=== PATIENT | male | born 1960 | race Caucasian/White ===

== ENCOUNTER → 2016-10-09 | Outpatient (CLI) | payer BC ==
[2016-10-09 08:40] LABS: Blood Urea Nitrogen 12 mg/dL (9-20); Non-African American GFR(MDRD) >60 (>60 ml/min/1.73 sqM)
== END | disposition home or self-care (01) ==
LOC: LABWHC1 07:47
PROVIDERS: ATTEND Internal Medicine Cardiovascular Disease
DX: R07.2 Precordial pain (principal)
CPT/HCPCS: 36415; 82565; 84520

== ENCOUNTER → 2016-11-18 | Outpatient (CLI) | payer BC ==
[2016-11-18 07:41] LABS: Basophils % (A) 1 %; CH 32.8; CHCM 34.5; Eosinophils # (A) 0.2 k/uL (0-0.7); Eosinophils % (A) 5 %; HCT 46.7 % (39.0-53.0); HDW 2.57; HGB 15.9 gm/dL (13.0-17.5); Luc # (Auto) 0.17; Luc % (Auto) 4; Lymphocytes # (A) 1.2 k/uL (1.0-4.8); Lymphocytes % (A) 31 %; MCH 32.4 pg (25.0-35.0); MCV 95.5 fL (80.0-100.0); Mean Platelet Volume 7.1; Monocytes # (A) 0.3 k/uL (0-1.0); Monocytes % (A) 7 %; Neutrophils # (A) 2.1 k/uL (1.3-7.7); Neutrophils % (A) 52 %; RBC 4.89 m/uL (4.30-5.90); RDW 12.4 % (11.5-15.5); WBC (Perox) 4.11
[2016-11-18 08:29] LABS: ALT 34 U/L (21-72); AST 29 U/L (17-59); Alkaline Phosphatase 54 U/L (38-126); Anion Gap 8 mmol/L; Blood Urea Nitrogen 14 mg/dL (9-20); Calcium 9.5 mg/dL (8.4-10.2); Carbon Dioxide 32 mmol/L (22-30); Chloride 103 mmol/L (98-107); Cholesterol 168 mg/dL (<200); Glucose 86 mg/dL (74-99); HDL Cholesterol 53 mg/dL (40-60); Non-African American GFR(MDRD) >60 (>60 ml/min/1.73 sqM); Potassium 4.5 mmol/L (3.5-5.1); Sodium 143 mmol/L (137-145); Total Bilirubin 1.1 mg/dL (0.2-1.3); Total Protein 7.1 g/dL (6.3-8.2); Triglycerides 95 mg/dL (<150)
[2016-11-18 09:17] LABS: Hepatitis C Virus IgG Index 0.01
[2016-11-18 09:26] LABS: Hepatitis C Virus IgG Ab Negative (Negative)
[2016-11-18 13:17] LABS: Prostate Specific Antigen 1.87 ng/mL (0.00-4.00)
== END | disposition home or self-care (01) ==
LOC: LABWHC1 07:02
PROVIDERS: ATTEND Family Medicine
DX: E78.2 Mixed hyperlipidemia (principal); I10 Essential (primary) hypertension; R53.81 Other malaise; Z13.9 Encounter for screening, unspecified; Z12.5 Encounter for screening for malignant neoplasm of prostate
CPT/HCPCS: 36415; 80053; 80061; 84153; 85025; 86803

== ENCOUNTER 2017-06-06 06:40 | Observation (INO) | payer BC ==
[2017-06-06] MEDS ORDERED: ASPIRIN 81 MG PO STA (07:23)
[2017-06-06] MEDS ORDERED: NITROGLYCERIN OINT 1 INCH/GM PACKET TOPICAL STA (07:23)
--- NOTE | 2017-06-06 07:26 | ED ---
General Adult HPI - General Chief complaint: Chest Pain Stated complaint: Sharp Left Shoulder Pain/Cardiac Hx Time Seen by Provider: 06/06/17 07:05 Source: patient, RN notes reviewed Mode of arrival: wheelchair Limitations: no limitations - History of Present Illness Initial comments: Patient is a pleasant 57-year-old male presenting to the emergency department with left anterior shoulder discomfort. Onset was when he woke prior to arrival. Symptoms just lasted a minute. Discomfort was sharp. Discomfort did radiate to the axilla. Discomfort has resolved and is symptom-free at this time. No associated dyspnea, nausea, or diaphoresis. Patient did have similar symptoms a few days ago. Currently symptom-free. - Related Data Allergies Allergy/AdvReac Type Severity Reaction Status Date / Time acetaminophen Allergy Nausea & Verified 06/06/17 08:05 [From Darvocet-N] Vomiting Iodinated Contrast- Oral and Allergy Rash/Hives Verified 06/06/17 08:05 IV Dye propoxyphene Allergy Nausea & Verified 06/06/17 08:05 [From Darvocet-N] Vomiting Review of Systems ROS Statement: Those systems with pertinent positive or pertinent negative responses have been documented in the HPI. ROS Other: All systems not noted in ROS Statement are negative. Constitutional: Denies: fever Eyes: Denies: eye pain ENT: Denies: ear pain Respiratory: Denies: cough Cardiovascular: Denies: palpitations Endocrine: Denies: fatigue Gastrointestinal: Denies: abdominal pain Genitourinary: Denies: dysuria Musculoskeletal: Denies: back pain Skin: Denies: rash Neurological: Denies: weakness Past Medical History Past Medical History: No Reported History History of Any Multi-Drug Resistant Organisms: None Reported Additional Past Surgical History / Comment(s): aortic valve replacement 2009 Past Psychological History: No Psychological Hx Reported Smoking Status: Former smoker Past Alcohol Use History: Occasional General Exam Limitations: no limitations General appearance: alert, in no apparent distress Head exam: Present: atraumatic Eye exam: Present: normal appearance, PERRL ENT exam: Present: normal oropharynx Neck exam: Present: normal inspection Respiratory exam: Present: normal lung sounds bilaterally Cardiovascular Exam: Present: regular rate, normal rhythm Expanded Peripheral pulses: 2+: Radial (R), Radial (L), Dorsalis Pedis (R), Dorsalis Pedis (L) GI/Abdominal exam: Present: soft. Absent: tenderness Extremities exam: Present: normal inspection. Absent: pedal edema, calf tenderness Neurological exam: Present: alert Psychiatric exam: Present: normal affect, normal mood Skin exam: Present: normal color. Absent: rash Course Vital Signs 06/06/17 06/06/17 06/06/17 06:43 07:42 08:41 Temperature 98.1 F Pulse Rate 61 54 L 55 L Respiratory 18 18 18 Rate Blood Pressure 129/79 117/68 133/78 O2 Sat by Pulse 99 98 99 Oximetry 06/06/17 09:41 Temperature Pulse Rate 53 L Respiratory 18 Rate Blood Pressure 105/71 O2 Sat by Pulse 99 Oximetry EKG Findings - EKG Comments: EKG Findings:: normal sinus rhythm 60. OR 164. QRS 98. QT or 32. QTC 432. Normal axis. Septal Q waves. No acute ST change. Medical Decision Making - Medical Decision Making patient reexamined and resting comfortably in bed. Patient updated on results specifically CT results. Patient was specifically aware of several findings on computed tomography scan that he needs to follow-up with. Patient also updated on plan. Case was discussed with practitioner Valdez, covering for Dr. Aragon, covering Dr. aguero, who will admit for Dr. Saba. - Lab Data Result diagrams: 06/06/17 07:03 06/06/17 07:03 Lab Results 06/06/17 06/06/17 06/06/17 Range/Units 07:03 07:03 07:03 WBC 3.7 L (3.8-10.6) k/uL RBC 4.76 (4.30-5.90) m/uL Hgb 15.1 (13.0-17.5) gm/dL Hct 45.6 (39.0-53.0) % MCV 95.8 (80.0-100.0) fL MCH 31.6 (25.0-35.0) pg MCHC 33.0 (31.0-37.0) g/dL RDW 11.9 (11.5-15.5) % Plt Count 134 L (150-450) k/uL Neutrophils % 51 % Lymphocytes % 31 % Monocytes % 8 % Eosinophils % 6 % Basophils % 1 % Neutrophils # 1.9 (1.3-7.7) k/uL Lymphocytes # 1.1 (1.0-4.8) k/uL Monocytes # 0.3 (0-1.0) k/uL Eosinophils # 0.2 (0-0.7) k/uL Basophils # 0.0 (0-0.2) k/uL PT (9.0-12.0) sec INR (<1.2) APTT (22.0-30.0) sec D-Dimer (<0.60) mg/L FEU Sodium 143 (137-145) mmol/L Potassium 4.6 (3.5-5.1) mmol/L Chloride 105 (98-107) mmol/L Carbon Dioxide 29 (22-30) mmol/L Anion Gap 9 mmol/L BUN 15 (9-20) mg/dL Creatinine 0.86 (0.66-1.25) mg/dL Est GFR (MDRD) Af Amer >60 (>60 ml/min/1.73 sqM) Est GFR (MDRD) Non-Af >60 (>60 ml/min/1.73 sqM) Glucose 89 (74-99) mg/dL Calcium 9.3 (8.4-10.2) mg/dL Magnesium 2.0 (1.6-2.3) mg/dL Total Bilirubin 1.2 (0.2-1.3) mg/dL AST 27 (17-59) U/L ALT 38 (21-72) U/L Alkaline Phosphatase 62 (38-126) U/L Total Creatine Kinase 143 (55-170) U/L CK-MB (CK-2) 1.7 (0.0-2.4) ng/mL CK-MB (CK-2) Rel Index 1.2 Troponin I <0.012 (0.000-0.034) ng/mL Total Protein 7.0 (6.3-8.2) g/dL Albumin 4.3 (3.5-5.0) g/dL 06/06/17 Range/Units 07:03 WBC (3.8-10.6) k/uL RBC (4.30-5.90) m/uL Hgb (13.0-17.5) gm/dL Hct (39.0-53.0) % MCV (80.0-100.0) fL MCH (25.0-35.0) pg MCHC (31.0-37.0) g/dL RDW (11.5-15.5) % Plt Count (150-450) k/uL Neutrophils % % Lymphocytes % % Monocytes % % Eosinophils % % Basophils % % Neutrophils # (1.3-7.7) k/uL Lymphocytes # (1.0-4.8) k/uL Monocytes # (0-1.0) k/uL Eosinophils # (0-0.7) k/uL Basophils # (0-0.2) k/uL PT 10.8 (9.0-12.0) sec INR 1.1 (<1.2) APTT 28.2 (22.0-30.0) sec D-Dimer 0.77 H (<0.60) mg/L FEU Sodium (137-145) mmol/L Potassium (3.5-5.1) mmol/L Chloride (98-107) mmol/L Carbon Dioxide (22-30) mmol/L Anion Gap mmol/L BUN (9-20) mg/dL Creatinine (0.66-1.25) mg/dL Est GFR (MDRD) Af Amer (>60 ml/min/1.73 sqM) Est GFR (MDRD) Non-Af (>60 ml/min/1.73 sqM) Glucose (74-99) mg/dL Calcium (8.4-10.2) mg/dL Magnesium (1.6-2.3) mg/dL Total Bilirubin (0.2-1.3) mg/dL AST (17-59) U/L ALT (21-72) U/L Alkaline Phosphatase (38-126) U/L Total Creatine Kinase (55-170) U/L CK-MB (CK-2) (0.0-2.4) ng/mL CK-MB (CK-2) Rel Index Troponin I (0.000-0.034) ng/mL Total Protein (6.3-8.2) g/dL Albumin (3.5-5.0) g/dL - Radiology Data Radiology results: report reviewed (CT angios of the chest shows no pulmonary embolism. Mild aneurysmal dilation of descending thoracic aorta. Liver lesions. Pulmonary nodule.), image reviewed (chest x-ray shows mild cardiomegaly, postoperative changes.) Disposition Clinical Impression: Chest pain Disposition: ADMITTED IP TO THIS HOSP Referrals: Wicho Saba MD [Primary Care Provider] - 1-2 days Decision Time: 10:12
[2017-06-06 07:43] LABS: Basophils % (A) 1 %; CHCM 33.5; Eosinophils # (A) 0.2 k/uL (0-0.7); Eosinophils % (A) 6 %; HCT 45.6 % (39.0-53.0); HGB 15.1 gm/dL (13.0-17.5); Luc # (Auto) 0.12; Luc % (Auto) 3; Lymphocytes # (A) 1.1 k/uL (1.0-4.8); Lymphocytes % (A) 31 %; MCH 31.6 pg (25.0-35.0); MCV 95.8 fL (80.0-100.0); Mean Platelet Volume 7.5; Monocytes # (A) 0.3 k/uL (0-1.0); Monocytes % (A) 8 %; Neutrophils # (A) 1.9 k/uL (1.3-7.7); Neutrophils % (A) 51 %; RBC 4.76 m/uL (4.30-5.90); RDW 11.9 % (11.5-15.5); WBC 3.7 k/uL (3.8-10.6); WBC (Perox) 3.75
[2017-06-06 07:52] LABS: ALT 38 U/L (21-72); AST 27 U/L (17-59); Alkaline Phosphatase 62 U/L (38-126); Anion Gap 9 mmol/L; Blood Urea Nitrogen 15 mg/dL (9-20); Calcium 9.3 mg/dL (8.4-10.2); Carbon Dioxide 29 mmol/L (22-30); Chloride 105 mmol/L (98-107); Glucose 89 mg/dL (74-99); Non-African American GFR(MDRD) >60 (>60 ml/min/1.73 sqM); Potassium 4.6 mmol/L (3.5-5.1); Sodium 143 mmol/L (137-145); Total Bilirubin 1.2 mg/dL (0.2-1.3)
[2017-06-06 07:55] LABS: INR 1.1 (<1.2); Partial Thromboplastin Time 28.2 sec (22.0-30.0); Prothrombin Time 10.8 sec (9.0-12.0)
[2017-06-06] MEDS ORDERED: RX INFO: IV CONTRAST WAS GIVEN 1 EACH MISC MISCELLANE PRN (07:59)
[2017-06-06] MEDS ORDERED: methylPREDNISolone SOD SUCCI 125 MG/2 ML VIAL IV STA (08:05)
[2017-06-06] MEDS ORDERED: FAMOTIDINE 20 MG/2 ML VIAL IV STA (08:05)
[2017-06-06] MEDS ORDERED: diphenhydrAMINE 50 MG/ML 1 ML VIAL IVP STA (08:05)
[2017-06-06 08:07] LABS: Creatine Kinase 143 U/L (55-170)
--- NOTE | 2017-06-06 08:18 | XR ---
EXAMINATION TYPE: XR chest 2V DATE OF EXAM: 06/06/2017 HISTORY: Chest Pain. REFERENCE: Previous study dated 06/22/2012. FINDINGS: There has been a midline sternotomy. The heart is mildly enlarged. The lungs are clear. Pleural spaces are clear. IMPRESSION: MILD CARDIOMEGALY.
[2017-06-06 08:20] LABS: Creatine Kinase MB 1.7 ng/mL (0.0-2.4); Troponin I <0.012 ng/mL (0.000-0.034)
--- NOTE | 2017-06-06 09:48 | CT ---
EXAMINATION TYPE: CT angio chest DATE OF EXAM: 06/06/2017 9:15 AM COMPARISON: NONE HISTORY: Chest pain, left shoulder pain (sharp) CT DLP: 277.40 mGycm Automated exposure control for dose reduction was used. CONTRAST: CTA scan of the thorax is performed with IV Contrast, patient injected with 100 ml mL of Omnipaque 35 0, pulmonary embolism protocol. . FINDINGS: There is a 5.5 mm pulmonary nodule in the apex of the right lung. The previous study did no t extend this far superiorly. There is apical scarring present bilaterally. There is some dependent a telectasis at the lung bases bilaterally. There is some shotty mediastinal adenopathy. No pathologically enlarged lymph nodes are seen. There is no evidence of pulmonary embolus. There is mild aneurysmal dilatation of the ascending thoracic aorta. The root of the aorta measures 3 .8 cm. The proximal arch measures 3.2 cm. The remainder the aorta is normal in caliber. The heart is enlarged. There is no pleural or pericardial fluid. There is a small hiatal hernia. There is an ill-defined 15 x 11 mm area of decreased attenuation in the medial segment of the left lo be of the liver. There is a second, 9.3 mm lesion in the medial segment of the left lobe of the liver as well. A third, 2 cm lesion is noted in the posterior segment of the right lobe of the liver. Visu alized portions of the upper abdomen are otherwise normal. There is hypertrophic spondylosis within the spine. IMPRESSION: 1. THIS EXAMINATION IS NEGATIVE FOR PULMONARY EMBOLUS. 2. MILD ANEURYSMAL DILATATION OF THE ASCENDING THORACIC AORTA. 3. 3 LESIONS WITHIN THE LIVER THAT REQUIRE FURTHER ASSESSMENT. NONEMERGENT ULTRASOUND OF THE LIVER WO ULD BE SUGGESTED. 4. CARDIOMEGALY. 5. SOLITARY RIGHT-SIDED PULMONARY NODULE IN THE APEX OF THE RIGHT LUNG. 6. SMALL HIATAL HERNIA. 7. DEGENERATIVE CHANGES WITHIN THE SPINE.
[2017-06-06] MEDS ORDERED: NITROGLYCERIN SL TABS 0.4 MG TAB SUBLINGUAL PRN (10:12)
[2017-06-06 11:08] VITALS: TEMP 98.2
[2017-06-06 11:29] VITALS: BP 101/61; PULSE 59; RESP 16
[2017-06-06 11:47] VITALS: BMI 24.1
[2017-06-06] MEDS ORDERED: NITROGLYCERIN OINT 1 INCH/GM PACKET TOPICAL SCH (12:00)
[2017-06-06 14:22] LABS: Creatine Kinase 123 U/L (55-170)
[2017-06-06 14:36] LABS: Creatine Kinase MB 1.3 ng/mL (0.0-2.4); Troponin I <0.012 ng/mL (0.000-0.034)
--- NOTE | 2017-06-06 14:38 | P.HPIM ---
History of Present Illness 57-year-old male came in with complaints of sharp pain in the right lower chest area in the axilla lasted for 1 minute nonpleuritic in nature not associated with food denied any diaphoresis or shortness of breath associated with that no other active bleeding or relieving factors patient a couple episodes patient even had one episode but before I evaluated the patient. Patient the chest pain is nonpleuritic musculoskeletal related patient had a CT angios the chest which did not reveal any pulmonary embolism but there is a nodule in the right apex and also 3 lesions in the liver apparently patient had him lesion in the liver in the past as well. Because of these lesions patient will be referred to pulmonology for follow-up CAT scans patient will also be referred to oncology for liver lesions which probably need to be followed as an outpatient with repeat ultrasound. We will rule out acute coronary syndromes if her next set of troponin is negative for cardiology evaluation patient probably can be discharged home. Patient chest pain appears to be noncardiac Review of Systems REVIEW OF SYSTEMS: CONSTITUTIONAL: No fever, no malaise, no fatigue. HEENT: No recent visual problems or hearing problems. Denied any sore throat. CARDIOVASCULAR: No orthopnea, PND, no palpitations, no syncope. PULMONARY: No shortness of breath, no cough, no hemoptysis. GASTROINTESTINAL: No diarrhea, no nausea, no vomiting, no abdominal pain. Normoactive bowel sounds. NEUROLOGICAL: No headaches, no weakness, no numbness. HEMATOLOGICAL: Denies any bleeding or petechiae. GENITOURINARY: Denies any burning micturition, frequency, or urgency. MUSCULOSKELETAL/RHEUMATOLOGICAL: Denies any joint pain, swelling, or any muscle pain. ENDOCRINE: Denies any polyuria or polydipsia. The rest of the 14-point review of systems is negative. Past Medical History Past Medical History: GERD/Reflux History of Any Multi-Drug Resistant Organisms: None Reported Additional Past Surgical History / Comment(s): aortic valve replacement 2009 Past Anesthesia/Blood Transfusion Reactions: No Reported Reaction Past Psychological History: No Psychological Hx Reported Smoking Status: Former smoker Past Alcohol Use History: Occasional - Past Family History Mother Family Medical History: Cancer, Respiratory Disorder Additional Family Medical History / Comment(s): pased from lung cancer Father Family Medical History: Coronary Artery Disease (CAD), Respiratory Disorder Additional Family Medical History / Comment(s): passed from pulmonary fibrosis Medications and Allergies Home Medications Medication Instructions Recorded Confirmed Type Aspirin 325 mg PO DAILY 06/06/17 06/06/17 History Doxazosin Mesylate 1 mg PO HS 06/06/17 06/06/17 History Pantoprazole Sodium [Protonix] 40 mg PO DAILY@1400 06/06/17 06/06/17 History Allergies Allergy/AdvReac Type Severity Reaction Status Date / Time Iodinated Contrast- Oral and Allergy Rash/Hives Verified 06/06/17 10:36 IV Dye propoxyphene Allergy Nausea & Verified 06/06/17 10:36 [From Darvocet-N] Vomiting Physical Exam Vitals: Vital Signs Temp Pulse Pulse Resp BP BP Pulse Ox 06/06/17 11:07 98.2 F 06/06/17 11:00 97.5 F L 59 L 16 101/61 97 06/06/17 10:34 54 L 18 106/67 99 06/06/17 09:41 53 L 18 105/71 99 06/06/17 08:41 55 L 18 133/78 99 06/06/17 07:42 54 L 18 117/68 98 06/06/17 06:43 98.1 F 61 18 129/79 99 Intake and Output 06/05/17 06/06/17 06/06/17 22:59 06:59 14:59 Other: Voiding Method Toilet Weight 80.739 kg 80.739 kg Patient Weight 06/07/17 05:59 Weight 80.739 kg PHYSICAL EXAMINATION: GENERAL: The patient is alert and oriented x3, not in any acute distress. Well developed, well nourished. HEENT: Pupils are round and equally reacting to light. EOMI. No scleral icterus. No conjunctival pallor. Normocephalic, atraumatic. No pharyngeal erythema. No thyromegaly. CARDIOVASCULAR: S1 and S2 present. No murmurs, rubs, or gallops. PULMONARY: Chest is clear to auscultation, no wheezing or crackles. ABDOMEN: Soft, nontender, nondistended, normoactive bowel sounds. No palpable organomegaly. MUSCULOSKELETAL: No joint swelling or deformity. EXTREMITIES: No cyanosis, clubbing, or pedal edema. NEUROLOGICAL: Gross neurological examination did not reveal any focal deficits. SKIN: No rashes. Results CBC & Chem 7: 06/06/17 07:03 06/06/17 07:03 Labs: Abnormal Lab Results - Last 24 Hours (Table) 06/06/17 06/06/17 Range/Units 07:03 07:03 WBC 3.7 L (3.8-10.6) k/uL Plt Count 134 L (150-450) k/uL D-Dimer 0.77 H (<0.60) mg/L FEU Thrombosis Risk Factor Assmnt - Choose All That Apply Each Factor Represents 1 point: Age 41-60 years Thrombosis Risk Factor Assessment Total Risk Factor Score: 1 Thrombosis Risk Factor Assessment Level: Low Risk Assessment and Plan Plan: #1 chest pain: We will rule out acute coronary syndromes and unstable angina repeat another 2 more troponins cardiac reevaluation. #2 pulmonary nodule: Referral to pulmonology as mentioned above #3 lesions in the liver: Follow-up AN OUTPATIENT AND FOLLOW-UP WITH ONCOLOGY AN OUTPATIENT #4 gastro-esophageal reflux disease
--- NOTE | 2017-06-06 14:39 | P.DS ---
Providers Date of admission: 06/06/17 10:13 Attending physician: Roz Aragon Consults: 06/06/17 10:12 Consult Physician Urgent Consulting Provider: Man Varghese Consult Reason/Comments: chest pain Do you want consulting provider notified?: Yes Primary care physician: Harshil Saba [facility] Course: Please refer to my HPI Plan - Discharge Summary Discharge Rx Participant: No New Discharge Prescriptions: Discontinued Lisinopril [Prinivil] 5 mg PO BID No Action Pantoprazole Sodium [Protonix] 40 mg PO DAILY@1400 Aspirin 325 mg PO DAILY Doxazosin Mesylate 1 mg PO HS Discharge Medication List Aspirin 325 mg PO DAILY 06/06/17 [History] Doxazosin Mesylate 1 mg PO HS 06/06/17 [History] Pantoprazole Sodium [Protonix] 40 mg PO DAILY@1400 06/06/17 [History] Follow up Appointment(s)/Referral(s): Pietro Newby MD [STAFF PHYSICIAN] - 1 Week Wicho Saba MD [Primary Care Provider] - 3 Days Mark Min MD [STAFF PHYSICIAN] - 1 Week Patient Instructions/Handouts: Chest Pain (GEN) Discharge Disposition: HOME SELF-CARE
[2017-06-07] MEDS ORDERED: ASPIRIN 325 MG TAB PO SCH (09:00)
== END 2017-06-06 15:08 | disposition home or self-care (01) ==
LOC: EC 06:40 → 3OBS 10:13
PROVIDERS: ADMIT Hospitalist; ATTEND Hospitalist
DX: R07.89 Other chest pain (principal); R91.1 Solitary pulmonary nodule; K76.9 Liver disease, unspecified; M25.512 Pain in left shoulder; K21.9 Gastro-esophageal reflux disease without esophagitis; Z87.891 Personal history of nicotine dependence; Z88.5 Allergy status to narcotic agent; Z91.041 Radiographic dye allergy status; Z95.2 Presence of prosthetic heart valve; Z80.1 Family history of malignant neoplasm of trachea, bronchus and lung; Z82.49 Family history of ischemic heart disease and other diseases of the circulatory system; Z79.82 Long term (current) use of aspirin; Z79.899 Other long term (current) drug therapy; M79.621 Pain in right upper arm
CPT/HCPCS: 99285; 96374; 96375 ×2; 36415; 93005; 85379; 80053; 82550; 82553; 83735; 84484; 85025; 85610; 85730; 71020; 71275; G0378; J1200; J2930; Q9967

== ENCOUNTER → 2017-11-28 | Outpatient (CLI) | payer BC ==
[2017-11-28 10:20] LABS: HCT 46.4 % (39.0-53.0); HGB 16.4 gm/dL (13.0-17.5); MCH 32.4 pg (25.0-35.0); MCHC 35.4 g/dL (31.0-37.0); MCV 91.6 fL (80.0-100.0); Mean Platelet Volume 7.5; Platelet Count 126 k/uL (150-450); RBC 5.07 m/uL (4.30-5.90); RDW 12.2 % (11.5-15.5)
[2017-11-28 10:26] LABS: Appearance,Urine Clear (Clear); Bilirubin,Urine Negative (Negative); Blood,Urine Negative (Negative); Color,Urine Yellow; Glucose,Urine (UA) Negative (Negative); Ketones,Urine Negative (Negative); Leukocyte Esterase,Urine Negative (Negative); Nitrite,Urine Negative (Negative); Protein,Urine Negative (Negative); Urobilinogen,Urine <2.0 mg/dL (<2.0)
[2017-11-28 10:58] LABS: ALT 33 U/L (21-72); AST 31 U/L (17-59); Albumin 4.5 g/dL (3.5-5.0); Alkaline Phosphatase 59 U/L (38-126); Anion Gap 12 mmol/L; Blood Urea Nitrogen 15 mg/dL (9-20); Calcium 9.7 mg/dL (8.4-10.2); Carbon Dioxide 25 mmol/L (22-30); Chloride 106 mmol/L (98-107); Cholesterol 160 mg/dL (<200); Glucose 88 mg/dL (74-99); HDL Cholesterol 60 mg/dL (40-60); LDL Cholesterol,Calculated 85 mg/dL (0-99); Potassium 4.3 mmol/L (3.5-5.1); Sodium 143 mmol/L (137-145); Total Bilirubin 1.2 mg/dL (0.2-1.3); Total Protein 7.2 g/dL (6.3-8.2); Triglycerides 75 mg/dL (<150)
[2017-11-28 11:27] LABS: Prostate Specific Antigen 2.53 ng/mL (0.00-4.00)
== END | disposition home or self-care (01) ==
LOC: LABWHC1 09:15
PROVIDERS: ATTEND Family Medicine
DX: Z00.01 Encounter for general adult medical examination with abnormal findings (principal)
CPT/HCPCS: 36415; 80053; 80061; 81003; 84153; 85027

== ENCOUNTER 2019-02-14 08:21 | Day surgery (SDC) | payer BC ==
[2019-02-10 14:50] VITALS: BMI 24.7
[~2019-02-14 08:21] MED LIST: LACTATED RINGERS 1,000 ML IV SCH; LIDOCAINE 1% 20 ML VIAL (10MG/ML) FOR IV START INTRADERMA PRN
[2019-02-14 08:39] VITALS: RESP 16; TEMP 96.9
[2019-02-14] MEDS ORDERED: MIDAZOLAM 2 MG/2 ML VIAL ONE (09:20)
[2019-02-14] MEDS ORDERED: PROPOFOL 10 MG/ML 20 ML VIAL IV ONE (09:20)
[2019-02-14] MEDS ORDERED: fentaNYL (PF) 50 MCG/ML 2 ML AMP ONE (09:20)
--- NOTE | 2019-02-14 10:15 | P.PCN ---
Date of Procedure: 02/14/19 Description of Procedure: BRIEF HISTORY: Patient is a 58-year-old pleasant male scheduled for an elective colonoscopy as a part of evaluation of symptoms of rectal bleeding, altered bowel habits, history of polyps. He reports that over the past year he has been having loose stool. He reports episodes of bright red blood per rectum. No family history of colon cancer. No family history of IBD. He also reports some periumbilical abdominal pain. Last colonoscopy was 7 years ago and patient believes it was significant for polyps. PROCEDURE PERFORMED: Colonoscopy with biopsy. PREOPERATIVE DIAGNOSIS: Hematochezia, abdominal pain, change in bowel habits, history of colon polyps, last colonoscopy 7 years ago. ESTIMATED BLOOD LOSS: Minimal. IV sedation per Anesthesia. PROCEDURE: After informed consent was obtained, the patient, was brought into the endoscopy unit. IV sedation was administered by Anesthesia under continuous monitoring. Digital rectal examination was normal. Initially the Olympus CF-190 flexible video colonoscope was then inserted in the rectum, gradually advanced into the cecum without any difficulty. The terminal ileum was intubated and appeared normal. Careful examination was performed as the scope was gradually being withdrawn. Ileocecal valve and the appendiceal orifice were visualized and appeared normal. Prep was excellent. Mucosa of the cecum, ascending colon, transverse colon, descending colon, sigmoid colon, and rectum appeared normal. Random biopsies were taken of the left colon and the right colon due to symptoms of altered bowel habits. Mild internal hemorrhoids. Mild scattered erythema in the rectum likely related to prep. Retroflexion was performed in the rectum and no lesions were seen. The patient tolerated the procedure well. IMPRESSION: Normal-appearing colon from rectum to cecum and normal appearing terminal ileum with random biopsies of the right colon and left colon to rule out microscopic colitis. Mild internal hemorrhoids. RECOMMENDATIONS: Findings of this examination were discussed with the patient and his . Okay to resume diet. Await pathology from biopsies. Would recommend repeat colonoscopy in 5 years given personal history of colon polyps.
[2019-02-14 10:34] VITALS: BP 117/76; PULSE 52
== END 2019-02-14 11:25 | disposition home or self-care (01) ==
LOC: ORWHC2ENDO 08:21
PROVIDERS: ATTEND Internal Medicine
DX: K92.1 Melena (principal); K64.8 Other hemorrhoids; R19.7 Diarrhea, unspecified; R10.33 Periumbilical pain; Z86.010 Personal history of colon polyps; K21.9 Gastro-esophageal reflux disease without esophagitis; N42.9 Disorder of prostate, unspecified; Z95.2 Presence of prosthetic heart valve; Z87.891 Personal history of nicotine dependence; Z79.82 Long term (current) use of aspirin; Z79.899 Other long term (current) drug therapy; Z91.041 Radiographic dye allergy status; Z88.5 Allergy status to narcotic agent; Z91.048 Other nonmedicinal substance allergy status; Z80.1 Family history of malignant neoplasm of trachea, bronchus and lung
CPT/HCPCS: 45380; 88305; J2250; J3010; J2704

== ENCOUNTER → 2019-06-17 | Outpatient (CLI) | payer BC ==
[2019-06-17 14:38] LABS: HCT 44.7 % (39.0-53.0); HGB 15.4 gm/dL (13.0-17.5); MCH 32.8 pg (25.0-35.0); MCHC 34.4 g/dL (31.0-37.0); MCV 95.1 fL (80.0-100.0); Mean Platelet Volume 6.6; Platelet Count 142 k/uL (150-450); RDW 11.8 % (11.5-15.5); WBC 4.3 k/uL (3.8-10.6)
[2019-06-17 14:49] LABS: African American GFR (CKD) >90 (>60 ml/min/1.73 sqM); Anion Gap 9 mmol/L; Blood Urea Nitrogen 13 mg/dL (9-20); Carbon Dioxide 29 mmol/L (22-30); Chloride 103 mmol/L (98-107); Potassium 4.2 mmol/L (3.5-5.1); Sodium 141 mmol/L (137-145)
== END | disposition home or self-care (01) ==
LOC: LABPAT 14:12
PROVIDERS: ATTEND Internal Medicine Cardiovascular Disease
DX: Z01.812 Encounter for preprocedural laboratory examination (principal); I71.4 Abdominal aortic aneurysm, without rupture
CPT/HCPCS: 36415; 80051; 82565; 84520; 85027

== ENCOUNTER 2020-02-10 14:39 | Emergency (ER) | payer OTHER, BC ==
[2020-02-10 14:48] VITALS: RESP 18; TEMP 98.4
[2020-02-10] MEDS ORDERED: LIDOCAINE 1% INJ 10MG/ML (20 ML MDV) SQ ONE (15:31)
--- NOTE | 2020-02-10 15:37 | ED ---
Wound/Laceration HPI - General Chief Complaint: Wound/Laceration Stated Complaint: left ring finger cut Time Seen by Provider: 02/10/20 15:20 Source: patient Mode of arrival: ambulatory Limitations: no limitations - History of Present Illness Initial Comments: Patient is a 59-year-old male presenting to the emergency Department with complaints of a laceration on his left ring finger that happened prior to arrival. Patient states he was at work using a razor blade to cut plastic off of a car when he slipped and he sliced the inside part of his left ring finger. Patient states he does take a full-strength aspirin daily, no other blood thinner. Patient states his tetanus is up-to-date, 3 years ago. Bleeding is controlled at this time. He has no further complaints. - Related Data Home Medications Medication Instructions Recorded Confirmed Aspirin 325 mg PO DAILY 06/06/17 02/14/19 Doxazosin Mesylate [Cardura Xl] 2 mg PO BID 02/10/19 02/14/19 Famotidine [Pepcid AC] 10 mg PO DAILY 02/10/19 02/14/19 Allergies Allergy/AdvReac Type Severity Reaction Status Date / Time Iodinated Contrast Media Allergy Rash/Hives Verified 02/10/20 14:48 [Iodinated Contrast- Oral and IV Dye] propoxyphene Allergy Nausea & Verified 02/10/20 14:48 [From Darvocet-N] Vomiting Review of Systems ROS Statement: Those systems with pertinent positive or pertinent negative responses have been documented in the HPI. ROS Other: All systems not noted in ROS Statement are negative. Past Medical History Past Medical History: GERD/Reflux, Prostate Disorder Additional Past Medical History / Comment(s): intermittent abd. pain with diarrhea History of Any Multi-Drug Resistant Organisms: None Reported Past Surgical History: Cardiac Ablation Additional Past Surgical History / Comment(s): aortic valve replacement 2008. colonoscopy Past Anesthesia/Blood Transfusion Reactions: No Reported Reaction Past Psychological History: No Psychological Hx Reported Smoking Status: Former smoker Past Alcohol Use History: None Reported Past Drug Use History: None Reported - Past Family History Mother Family Medical History: Cancer, Respiratory Disorder Additional Family Medical History / Comment(s): pased from lung cancer Father Family Medical History: Coronary Artery Disease (CAD), Respiratory Disorder Additional Family Medical History / Comment(s): passed from pulmonary fibrosis General Exam - General Exam Comments Initial Comments: GENERAL: Well-appearing, well-nourished and in no acute distress. HEAD: Atraumatic, normocephalic. EYES: Pupils equal round and reactive to light, extraocular movements intact, sclera anicteric, conjunctiva are normal. ENT: Nares patent, oropharynx clear without exudates. Moist mucous membranes. NECK: Normal range of motion, supple without lymphadenopathy or JVD. LUNGS: Breath sounds clear to auscultation bilaterally and equal. No wheezes rales or rhonchi. HEART: Regular rate and rhythm without murmurs, rubs or gallops. ABDOMEN: Soft, nontender, normoactive bowel sounds. No guarding, no rebound. No masses appreciated. : Deferred EXTREMITIES: Full range of motion of his left hand and fingers. Neurovascular intact. No clubbing or cyanosis. NEUROLOGICAL: Normal speech, normal gait. PSYCH: Normal mood, normal affect. SKIN: Warm, Dry, normal turgor, no rashes. Patient has a 1.5 cm laceration to the inside part of his left ring finger, near the IP joint. Bleeding is controlled at this time with a bandage. Limitations: no limitations Course Vital Signs 02/10/20 02/10/20 14:45 17:04 Temperature 98.4 F 98.4 F Pulse Rate 71 74 Respiratory 18 18 Rate Blood Pressure 121/77 119/78 O2 Sat by Pulse 99 99 Oximetry Procedures - Laceration Laceration #1 Consent Obtained: verbal consent Indication: laceration Site: hand Size (cm): 0 (1.5) Description: linear Depth: simple, single layer Anesthetic Used: lidocaine 1% Anesthesia Technique: local infiltration Amount (mls): 3 Pre-repair: irrigated extensively Type of Sutures: nylon Size of Sutures: 5-0 Number of Sutures: 5 Technique: simple, interrupted Patient Tolerated Procedure: well Medical Decision Making - Medical Decision Making Patient is a 59-year-old male here for a 1.5 cm laceration to the inside aspect of his left ring finger. His tetanus vaccine is up-to-date. Bleeding was controlled with a bandage. Patient's wound was cleaned, closed with 5, 5-0 sutures. Patient tolerated procedure well. He'll have sutures removed in 7-10 days. He will be cautious with gripping and using his left hand. He is stable for discharge. Return parameters were discussed with the patient he verbalizes understanding. Disposition Clinical Impression: Laceration of left ring finger Disposition: HOME SELF-CARE Condition: Stable Instructions (If sedation given, give patient instructions): Care For Your Stitches (ED) Additional Instructions: Please return to the Emergency Department if symptoms worsen or any other concerns. Stitches need to be removed in 7-10 days. No swimming, pools, hot tub until sutures are removed. Keep area covered while working. Be cautious of gripping and using that hand. Is patient prescribed a controlled substance at d/c from ED?: No Referrals: None,Stated [REFERRING] - 1-2 days
[2020-02-10 17:04] VITALS: BP 119/78; PULSE 74
== END 2020-02-10 17:04 | disposition home or self-care (01) ==
LOC: EC 14:39
DX: S61.215A Laceration without foreign body of left ring finger without damage to nail, initial encounter (principal); K21.9 Gastro-esophageal reflux disease without esophagitis; N42.9 Disorder of prostate, unspecified; Z79.899 Other long term (current) drug therapy; Z88.8 Allergy status to other drugs, medicaments and biological substances; Z87.891 Personal history of nicotine dependence; Z91.041 Radiographic dye allergy status; Z95.828 Presence of other vascular implants and grafts; W26.8XXA Contact with other sharp object(s), not elsewhere classified, initial encounter; Y93.89 Activity, other specified; Y92.69 Other specified industrial and construction area as the place of occurrence of the external cause; Y99.0 Civilian activity done for income or pay
CPT/HCPCS: 99282; 12001; J2001

== ENCOUNTER 2020-03-08 02:29 | Emergency (ER) | payer BC ==
[2020-03-08 02:38] VITALS: RESP 18
--- NOTE | 2020-03-08 02:55 | ED ---
General Adult HPI - General Chief complaint: Syncope Stated complaint: near syncope Time Seen by Provider: 03/08/20 02:43 Source: patient, family Mode of arrival: ambulatory Limitations: no limitations - History of Present Illness Initial comments: This patient is a 59-year-old man who presents to be evaluated after syncopal episode. The patient states that he had awakened this morning with a cramp in his left calf. The patient states that after that he had gotten up to use the bathroom. While he was going back to bed he felt lightheaded and states that he had been slumped into the bed. He was feeling extremely weak and also diaphoretic. Patient's stated that he also seemed to be disoriented and not answering her appropriately. She states that she had to move his legs into bed he was not able to assist. There was no focal weakness this was bilateral. They felt he should be evaluated here. Patient states that he is feeling back to his baseline now. He did not have any chest pain. No dyspnea. No palpitations. Patient has history of aortic valve replacement due to bicuspid valve Onset/Timin -: hour(s) Severity scale (1-10): 0 Consistency: now resolved Improves with: none Worsens with: none Associated Symptoms: diaphoresis, syncope Treatments Prior to Arrival: none - Related Data Home Medications Medication Instructions Recorded Confirmed Aspirin 325 mg PO DAILY 06/06/17 02/14/19 Doxazosin Mesylate [Cardura Xl] 2 mg PO BID 02/10/19 02/14/19 Famotidine [Pepcid AC] 10 mg PO DAILY 02/10/19 02/14/19 Allergies Allergy/AdvReac Type Severity Reaction Status Date / Time Iodinated Contrast Media Allergy Rash/Hives Verified 03/08/20 02:38 [Iodinated Contrast- Oral and IV Dye] propoxyphene Allergy Nausea & Verified 03/08/20 02:38 [From Darvocet-N] Vomiting Review of Systems ROS Statement: Those systems with pertinent positive or pertinent negative responses have been documented in the HPI. ROS Other: All systems not noted in ROS Statement are negative. Constitutional: Denies: fever, chills, weakness Eyes: Denies: vision change Respiratory: Denies: cough, dyspnea Cardiovascular: Reports: as per HPI, syncope. Denies: chest pain, palpitations, orthopnea, edema Gastrointestinal: Denies: abdominal pain, nausea, vomiting Genitourinary: Denies: dysuria, hematuria Musculoskeletal: Denies: back pain Skin: Denies: rash Neurological: Reports: as per HPI, confusion. Denies: headache, weakness, numbness, paresthesias, abnormal gait Hematological/Lymphatic: Denies: easy bleeding Past Medical History Past Medical History: GERD/Reflux, Prostate Disorder Additional Past Medical History / Comment(s): intermittent abd. pain with diarrhea History of Any Multi-Drug Resistant Organisms: None Reported Past Surgical History: Cardiac Ablation Additional Past Surgical History / Comment(s): aortic valve replacement 2008. colonoscopy Past Anesthesia/Blood Transfusion Reactions: No Reported Reaction Past Psychological History: No Psychological Hx Reported Smoking Status: Former smoker Past Alcohol Use History: Occasional Past Drug Use History: None Reported - Past Family History Mother Family Medical History: Cancer, Respiratory Disorder Additional Family Medical History / Comment(s): pased from lung cancer Father Family Medical History: Coronary Artery Disease (CAD), Respiratory Disorder Additional Family Medical History / Comment(s): passed from pulmonary fibrosis General Exam Limitations: no limitations General appearance: alert, in no apparent distress Head exam: Present: atraumatic, normocephalic Eye exam: Present: normal appearance, PERRL, EOMI. Absent: scleral icterus, conjunctival injection Neck exam: Present: normal inspection Respiratory exam: Present: normal lung sounds bilaterally. Absent: respiratory distress, wheezes, rales, rhonchi, stridor Cardiovascular Exam: Present: normal rhythm, bradycardia (Rate 56 bpm), normal heart sounds. Absent: systolic murmur, diastolic murmur, rubs, gallop GI/Abdominal exam: Present: soft. Absent: distended, tenderness, guarding, rebound, mass, pulsatile mass Extremities exam: Present: normal inspection, normal capillary refill. Absent: pedal edema, calf tenderness Back exam: Present: normal inspection. Absent: CVA tenderness (R), CVA tenderness (L) Neurological exam: Present: alert, oriented X3 Skin exam: Present: warm, dry, intact, normal color. Absent: rash Course Vital Signs 03/08/20 03/08/20 02:30 04:00 Temperature 97.6 F Pulse Rate 55 L 52 L Respiratory 18 18 Rate Blood Pressure 129/76 113/77 O2 Sat by Pulse 98 98 Oximetry EKG Findings - EKG Results: EKG: interpreted by JOSH, sinus rhythm, normal axis, normal ST/T EKG shows: bradycardia (Rate 54 bpm) - Blocks, Peck, Hypertrophy, ST Abn: AV and intraventricular conduction: right bundle branch block (fixed/intermittent, complete/incomplete) (Incomplete) Medical Decision Making - Medical Decision Making 's patient is a 59-year-old man who presents following syncopal episode this morning. The workup does reveal mildly elevated BUN to creatinine ratio and the patient states that he may not have been fully keeping up with his usual fluid intake over the course yesterday. Discussed with the patient and the finding of a mildly elevated d-dimer and concern of possible DVT/PE. Further questioning regarding the patient's leg cramping reveals that it was something that he typically gets and had been self- limited he has no leg symptoms now no tenderness or swelling in the calf. The leg cramping was anterior to the groves. He never did have any chest symptoms. He does not have any chest pain dyspnea, cough, hemoptysis. The patient did decline to have CT to rule out a pulmonary embolus. In addition, patient is declining admission for telemetry monitoring and serial cardiac enzymes. He states he feels very well and would like to go home. He will follow with his physician. He agrees to return should there be any recurrence of symptoms or any new symptoms - Lab Data Result diagrams: 03/08/20 03:16 03/08/20 03:16 Lab Results 03/08/20 03/08/20 03/08/20 Range/Units 03:16 03:16 03:16 WBC 4.6 (3.8-10.6) k/uL RBC 4.51 (4.30-5.90) m/uL Hgb 14.3 (13.0-17.5) gm/dL Hct 43.6 (39.0-53.0) % MCV 96.6 (80.0-100.0) fL MCH 31.7 (25.0-35.0) pg MCHC 32.8 (31.0-37.0) g/dL RDW 11.7 (11.5-15.5) % Plt Count 121 L (150-450) k/uL Neutrophils % 55 % Lymphocytes % 27 % Monocytes % 8 % Eosinophils % 7 % Basophils % 1 % Neutrophils # 2.5 (1.3-7.7) k/uL Lymphocytes # 1.2 (1.0-4.8) k/uL Monocytes # 0.4 (0-1.0) k/uL Eosinophils # 0.3 (0-0.7) k/uL Basophils # 0.0 (0-0.2) k/uL PT 10.5 (9.0-12.0) sec INR 1.0 (<1.2) APTT 22.9 (22.0-30.0) sec D-Dimer 1.00 H (<0.60) mg/L FEU Sodium 137 (137-145) mmol/L Potassium 3.6 (3.5-5.1) mmol/L Chloride 105 (98-107) mmol/L Carbon Dioxide 26 (22-30) mmol/L Anion Gap 6 mmol/L BUN 21 H (9-20) mg/dL Creatinine 0.71 (0.66-1.25) mg/dL Est GFR (CKD-EPI)AfAm >90 (>60 ml/min/1.73 sqM) Est GFR (CKD-EPI)NonAf >90 (>60 ml/min/1.73 sqM) Glucose 89 (74-99) mg/dL Calcium 8.8 (8.4-10.2) mg/dL Total Bilirubin 0.7 (0.2-1.3) mg/dL AST 38 (17-59) U/L ALT 26 (4-49) U/L Alkaline Phosphatase 74 (38-126) U/L Troponin I (0.000-0.034) ng/mL Total Protein 6.4 (6.3-8.2) g/dL Albumin 4.1 (3.5-5.0) g/dL 03/08/20 Range/Units 03:16 WBC (3.8-10.6) k/uL RBC (4.30-5.90) m/uL Hgb (13.0-17.5) gm/dL Hct (39.0-53.0) % MCV (80.0-100.0) fL MCH (25.0-35.0) pg MCHC (31.0-37.0) g/dL RDW (11.5-15.5) % Plt Count (150-450) k/uL Neutrophils % % Lymphocytes % % Monocytes % % Eosinophils % % Basophils % % Neutrophils # (1.3-7.7) k/uL Lymphocytes # (1.0-4.8) k/uL Monocytes # (0-1.0) k/uL Eosinophils # (0-0.7) k/uL Basophils # (0-0.2) k/uL PT (9.0-12.0) sec INR (<1.2) APTT (22.0-30.0) sec D-Dimer (<0.60) mg/L FEU Sodium (137-145) mmol/L Potassium (3.5-5.1) mmol/L Chloride (98-107) mmol/L Carbon Dioxide (22-30) mmol/L Anion Gap mmol/L BUN (9-20) mg/dL Creatinine (0.66-1.25) mg/dL Est GFR (CKD-EPI)AfAm (>60 ml/min/1.73 sqM) Est GFR (CKD-EPI)NonAf (>60 ml/min/1.73 sqM) Glucose (74-99) mg/dL Calcium (8.4-10.2) mg/dL Total Bilirubin (0.2-1.3) mg/dL AST (17-59) U/L ALT (4-49) U/L Alkaline Phosphatase (38-126) U/L Troponin I <0.012 (0.000-0.034) ng/mL Total Protein (6.3-8.2) g/dL Albumin (3.5-5.0) g/dL Disposition Clinical Impression: Syncope Disposition: HOME SELF-CARE Condition: Good Instructions (If sedation given, give patient instructions): Syncope (ED) Is patient prescribed a controlled substance at d/c from ED?: No Referrals: Wicho Saba MD [Primary Care Provider] - 1-2 days
--- NOTE | 2020-03-08 03:07 | XR ---
EXAMINATION TYPE: XR chest 2V DATE OF EXAM: 03/08/2020 COMPARISON: 06/28/2018 HISTORY: Syncope TECHNIQUE: FINDINGS: There is no heart failure nor confluent pneumonic infiltrate. There are sternal wires. Hear t size is fairly normal. Costophrenic angles are clear. Bony thorax is intact. IMPRESSION: No active cardiopulmonary disease. No change.
[2020-03-08 03:27] LABS: Basophils % (A) 1 %; Eosinophils # (A) 0.3 k/uL (0-0.7); Eosinophils % (A) 7 %; HCT 43.6 % (39.0-53.0); HGB 14.3 gm/dL (13.0-17.5); Lymphocytes # (A) 1.2 k/uL (1.0-4.8); Lymphocytes % (A) 27 %; MCH 31.7 pg (25.0-35.0); MCHC 32.8 g/dL (31.0-37.0); MCV 96.6 fL (80.0-100.0); Mean Platelet Volume 8.2; Monocytes # (A) 0.4 k/uL (0-1.0); Monocytes % (A) 8 %; Neutrophils # (A) 2.5 k/uL (1.3-7.7); Neutrophils % (A) 55 %; Platelet Count 121 k/uL (150-450); RBC 4.51 m/uL (4.30-5.90); RDW 11.7 % (11.5-15.5); WBC 4.6 k/uL (3.8-10.6)
[2020-03-08 03:40] LABS: ALT 26 U/L (4-49); AST 38 U/L (17-59); African American GFR (CKD) >90 (>60 ml/min/1.73 sqM); Albumin 4.1 g/dL (3.5-5.0); Alkaline Phosphatase 74 U/L (38-126); Anion Gap 6 mmol/L; Blood Urea Nitrogen 21 mg/dL (9-20); Calcium 8.8 mg/dL (8.4-10.2); Carbon Dioxide 26 mmol/L (22-30); Chloride 105 mmol/L (98-107); Glucose 89 mg/dL (74-99); Non-African American GFR(CKD) >90 (>60 ml/min/1.73 sqM); Potassium 3.6 mmol/L (3.5-5.1); Sodium 137 mmol/L (137-145); Total Bilirubin 0.7 mg/dL (0.2-1.3); Total Protein 6.4 g/dL (6.3-8.2)
[2020-03-08 03:52] LABS: Partial Thromboplastin Time 22.9 sec (22.0-30.0); Prothrombin Time 10.5 sec (9.0-12.0)
[2020-03-08 04:03] VITALS: PULSE 52
[2020-03-08 04:27] VITALS: BP 125/82; TEMP 97.3
== END 2020-03-08 04:26 | disposition home or self-care (01) ==
LOC: EC 02:29
DX: R55 Syncope and collapse (principal); R42 Dizziness and giddiness; R61 Generalized hyperhidrosis; R79.1 Abnormal coagulation profile; K21.9 Gastro-esophageal reflux disease without esophagitis; Z79.82 Long term (current) use of aspirin; Z79.899 Other long term (current) drug therapy; Z91.041 Radiographic dye allergy status; Z88.8 Allergy status to other drugs, medicaments and biological substances; Z87.891 Personal history of nicotine dependence; Z95.2 Presence of prosthetic heart valve
CPT/HCPCS: 36415; 71046; 80053; 84484; 85025; 85379; 85610; 85730; 93005; 99284

== ENCOUNTER → 2020-11-23 | Outpatient (CLI) | payer BC ==
[2020-11-23 10:51] LABS: HCT 44.3 % (39.6-50.0); HGB 14.8 g/dL (13.0-17.0); MCH 31.4 pg (27.0-32.0); MCHC 33.4 g/dL (32.0-37.0); MCV 94.1 fL (80.0-97.0); Mean Platelet Volume 10.5 fL (9.5-12.2); Platelet Count 128 X 10*3/uL (140-440); RBC 4.71 X 10*6/uL (4.40-5.60); RDW 11.9 % (11.5-14.5); WBC 3.77 X 10*3/uL (4.50-10.00)
[2020-11-24 01:14] LABS: African American GFR (CKD) 107.2 (60.0-200.0); Albumin 4.6 g/dL (3.80-4.90); Albumin/Globulin Ratio 2.3 (1.60-3.17); Anion Gap 12.3 mmol/L (4.00-12.00); BUN/Creat Ratio 16.67 Ratio (12.00-20.00); Calcium 9.8 mg/dL (8.7-10.3); Carbon Dioxide 23.7 mmol/L (21.6-31.8); Chol/HDL Ratio 2.82; LDL Cholesterol,Calculated 78.4 mg/dL (0.0-131.0); Non-African American GFR(CKD) 92.5 (60.0-200.0); Total Bilirubin 1.4 mg/dL (0.3-1.2); Total Protein 6.6 g/dL (6.2-8.2); VLDL Calculation 10.6 mg/dL (5.00-40.00)
== END | disposition home or self-care (01) ==
LOC: LABWHC1 07:12
PROVIDERS: ATTEND Family Medicine
DX: Z00.01 Encounter for general adult medical examination with abnormal findings (principal)
CPT/HCPCS: 36415; 80053; 80061; 85027

== ENCOUNTER 2021-06-07 06:25 | Day surgery (SDC) | payer BC ==
[2021-06-04 14:13] VITALS: BMI 21.9
[~2021-06-07 06:25] MED LIST changes: +LIDOCAINE 1% (10MG/ML) FOR IV START INTRADERMA PRN; -LIDOCAINE 1% 20 ML VIAL (10MG/ML) FOR IV START INTRADERMA PRN
[2021-06-07] MEDS ORDERED: PROPOFOL 10 MG/ML 20 ML VIAL IV ONE (07:02)
[2021-06-07] MEDS ORDERED: LIDOCAINE 1% INJ 10MG/ML (20 ML MDV) ONE (07:02)
[2021-06-07 07:04] VITALS: TEMP 98.3
[2021-06-07 07:29] VITALS: RESP 16
[2021-06-07 07:43] VITALS: BP 109/68; PULSE 50
[2021-06-07 07:55] LABS: Basophils % (A) 1 %; Eosinophils # (A) 0.2 k/uL (0-0.7); Eosinophils % (A) 6 %; HCT 41.6 % (39.0-53.0); HGB 14.6 gm/dL (13.0-17.5); Lymphocytes # (A) 1.2 k/uL (1.0-4.8); Lymphocytes % (A) 34 %; MCH 33.2 pg (25.0-35.0); MCHC 35.1 g/dL (31.0-37.0); MCV 94.4 fL (80.0-100.0); Mean Platelet Volume 8.1; Monocytes # (A) 0.3 k/uL (0-1.0); Monocytes % (A) 8 %; Neutrophils # (A) 1.8 k/uL (1.3-7.7); Neutrophils % (A) 48 %; Platelet Count 126 k/uL (150-450); RDW 12.5 % (11.5-15.5); Reticulocyte % 0.9 % (0.5-2.0); WBC 3.7 k/uL (3.8-10.6)
--- NOTE | 2021-07-30 09:22 | P.PCN ---
Date of Procedure: 06/07/21 Preoperative Diagnosis: Leukopenia, thrombocytopenia Postoperative Diagnosis: Leukopenia, thrombocytopenia Procedure(s) Performed: bone marrow biopsy and aspirate Anesthesia: MAC Estimated Blood Loss (ml): 0 IV fluids (ml): 0 Urine output (ml): 0 Pathology: other Condition: stable Disposition: same day Indications for Procedure: Leukopenia, thrombocytopenia Description of Procedure: Using sterile technique, the skin overlying the rt iliac creast was prepared with betadine and alcohol. After adequate sterile draping, 1% local anesthesia and systemic sedation, size 11, 4 in Jamshidi needle was utilized to access the periosteum. Total of 16ml of aspirate and core marrow biopsies were obtained. Pt tolerate procedure well. No immediate procedure related complications
--- NOTE | 2021-07-30 12:41 | PCN ---
PROCEDURE NOTE DATE OF PROCEDURE: 06/07/2021 PREOPERATIVE DIAGNOSIS: Leukopenia. POSTOPERATIVE DIAGNOSIS: Leukopenia. ANESTHESIA: Local with systemic sedation. PROCEDURE DETAILS: Utilizing sterile technique, the skin overlying the right iliac crest was prepared with Betadine and alcohol. After adequate sterile draping and local anesthesia with 1% lidocaine and systemic sedation, a size 11 4-inch Jamshidi needle was utilized to access the periosteum with ease. A total of 1 cm bone core biopsy and 15 mL of aspirate was obtained. The patient tolerated the procedure extremely well. There was no immediate procedure-related complication. Total blood loss less than 1 mL. Results are pending. MMODL / IJN: [id number] /
== END 2021-06-07 08:00 | disposition home or self-care (01) ==
LOC: OR 06:25
PROVIDERS: ATTEND Internal Medicine Hematology & Oncology
DX: D72.819 Decreased white blood cell count, unspecified (principal); D69.6 Thrombocytopenia, unspecified; I10 Essential (primary) hypertension; K21.9 Gastro-esophageal reflux disease without esophagitis; R19.7 Diarrhea, unspecified; R10.9 Unspecified abdominal pain; R63.4 Abnormal weight loss; Z98.890 Other specified postprocedural states; Z86.19 Personal history of other infectious and parasitic diseases; Z87.891 Personal history of nicotine dependence; Z80.1 Family history of malignant neoplasm of trachea, bronchus and lung; Z80.42 Family history of malignant neoplasm of prostate; Z79.82 Long term (current) use of aspirin; Z79.899 Other long term (current) drug therapy; Z91.041 Radiographic dye allergy status; Z88.8 Allergy status to other drugs, medicaments and biological substances
CPT/HCPCS: 85025; 85045; 38222; J2001; J2704

== ENCOUNTER 2022-01-11 14:02 | Emergency (ER) | payer BC ==
[2022-01-11 14:07] VITALS: TEMP 97.6
[2022-01-11 15:24] LABS: Basophils % (A) 1 %; Eosinophils # (A) 0.1 k/uL (0-0.7); Eosinophils % (A) 2 %; HCT 42.9 % (39.0-53.0); Lymphocytes # (A) 1.1 k/uL (1.0-4.8); Lymphocytes % (A) 26 %; MCH 31.4 pg (25.0-35.0); MCHC 32.5 g/dL (31.0-37.0); MCV 96.6 fL (80.0-100.0); Mean Platelet Volume 8.3; Monocytes # (A) 0.3 k/uL (0-1.0); Monocytes % (A) 6 %; Neutrophils # (A) 2.5 k/uL (1.3-7.7); Neutrophils % (A) 62 %; Platelet Count 120 k/uL (150-450); RBC 4.45 m/uL (4.30-5.90)
[2022-01-11 15:31] LABS: Appearance,Urine Clear (Clear); Bilirubin,Urine Negative (Negative); Blood,Urine Negative (Negative); Color,Urine Yellow; Glucose,Urine (UA) Trace (Negative); Ketones,Urine Negative (Negative); Leukocyte Esterase,Urine Negative (Negative); Nitrite,Urine Negative (Negative); PH, Urine 5.5 (5.0-8.0); Protein,Urine Negative (Negative); Specific Gravity,Urine 1.025 (1.001-1.035); Urobilinogen,Urine <2.0 mg/dL (<2.0)
[2022-01-11 15:34] LABS: ALT 19 U/L (4-49); AST 26 U/L (17-59); African American GFR (CKD) >90 (>60 ml/min/1.73 sqM); Albumin 4.2 g/dL (3.5-5.0); Alkaline Phosphatase 54 U/L (38-126); Anion Gap 6 mmol/L; Blood Urea Nitrogen 15 mg/dL (9-20); Calcium 8.9 mg/dL (8.4-10.2); Carbon Dioxide 28 mmol/L (22-30); Chloride 104 mmol/L (98-107); Glucose 127 mg/dL (74-99); Non-African American GFR(CKD) >90 (>60 ml/min/1.73 sqM); Sodium 138 mmol/L (137-145); Total Bilirubin 0.7 mg/dL (0.2-1.3); Total Protein 6.5 g/dL (6.3-8.2)
[2022-01-11 15:53] VITALS: RESP 18
--- NOTE | 2022-01-11 16:13 | CT ---
EXAMINATION TYPE: CT brain wo con CT DLP: 1075.4 mGycm, Automated exposure control for dose reduction was used. DATE OF EXAM: 01/11/2022 3:20 PM COMPARISON: None. CLINICAL INDICATION:Male, 61 years old with history of dizziness, Dizziness/chest pressure TECHNIQUE: Brain: Multiple axial CT images of the brain were obtained without IV contrast. FINDINGS: Brain: Extra-axial spaces: No abnormal extra-axial fluid collections. Ventricular system: Dilatation in proportion to cerebral atrophy. Cerebral parenchyma: Cerebral atrophy. No acute intraparenchymal hemorrhage or mass effect. The beltran -white junction is well differentiated. Scattered hypoattenuating areas are seen within the white mat ter. Cerebellum: Unremarkable. Mass effect: No evidence of midline shift. Intracranial vasculature: Atherosclerotic calcifications of the intracranial vessels. Soft tissues: Normal. Calvarium/osseous structures: No depressed skull fracture. Paranasal sinuses and mastoid air cells: Mild scattered paranasal sinus disease. Visualized orbits: Orbital contents are intact. IMPRESSION: 1. No acute intracranial process. 2. Nonspecific white matter changes, likely secondary to chronic small vessel ischemic disease.
--- NOTE | 2022-01-11 16:14 | XR ---
EXAMINATION TYPE: XR chest 2V DATE OF EXAM: 01/11/2022 3:25 PM COMPARISON: Chest radiographs from 03/08/2020 TECHNIQUE: XR chest 2V Frontal and lateral views of the chest. CLINICAL INDICATION:Male, 61 years old with history of Chest Pain; FINDINGS: Lungs/Pleura: There is flattening of the diaphragm with increased lucency of the lungs. No evidence o f pneumothorax, pleural effusion or focal consolidation. Pulmonary vascularity: Unremarkable. Heart/mediastinum: Cardiomediastinal silhouette is prominent in size. Musculoskeletal: No acute osseous pathology. IMPRESSION: 1. No acute cardiopulmonary disease process. 2. COPD changes.
--- NOTE | 2022-01-11 17:26 | ED ---
General Adult HPI - General Chief complaint: Chest Pain Stated complaint: Dizziness/chest pressure Time Seen by Provider: 01/11/22 14:35 Source: patient, RN notes reviewed, old records reviewed Mode of arrival: wheelchair Limitations: no limitations - History of Present Illness Initial comments: Patient is a 61-year-old male with past medical history remarkable for prostate disorder, GERD, cardiac ablation, aortic valve replacement and aortic root wendy tania in 2008, who presents to the emergency department with multiple complaints. Over the last week he is having intermittent chest pressure/pain that is sharp in nature that lasts for a few seconds at a time. Patient is also experiencing occasional dizziness sensation which she describes as room spinning. This occurs when he lays down at night that a bed. Is uncertain if its related to his medications or not. No known associated symptoms. No provocative or palliative factors. Currently is asymptomatic. Last had the dizziness sensation 2 days ago. Last set that chest discomfort earlier this morning. Took 325 mg of aspirin. Denies leg swelling, shortness of breath, abdominal pain, nausea, vomiting. Denies any current chest pain, lightheadedness, dizziness. Denies any weakness or numbness. Was diagnosed with CLL the last year without any chemo or radiation. - Related Data Home Medications Medication Instructions Recorded Confirmed Aspirin 325 mg PO DAILY 06/06/17 06/04/21 Doxazosin Mesylate [Cardura Xl] 2 mg PO BID 02/10/19 06/04/21 Cholecalciferol [Vitamin D3 (10 10 mcg PO DAILY 06/04/21 06/04/21 Mcg = 400 Iu)] Cyanocobalamin (Vitamin B-12) 5,000 mcg PO DAILY 06/04/21 06/04/21 [Vitamin B12] Omeprazole Magnesium [PriLOSEC] 20 mg PO DAILY 06/04/21 06/04/21 Zinc 50 mg PO DAILY 06/04/21 06/04/21 Allergies Allergy/AdvReac Type Severity Reaction Status Date / Time Iodinated Contrast Media Allergy Rash/Hives Verified 01/11/22 14:07 [Iodinated Contrast- Oral and IV Dye] propoxyphene Allergy Nausea & Verified 01/11/22 14:07 [From Darvocet-N] Vomiting Review of Systems ROS Statement: Those systems with pertinent positive or pertinent negative responses have been documented in the HPI. Review of Systems: CONST: Denies fever EYES: Denies blurry vision ENT: Denies nasal congestion C/V: Denies Chest pain RESP: Denies shortness of breath GI: Denies abdominal pain : Denies dysuria SKIN: Denies rash. MSK: Denies joint pain. NEURO: Denies headache ROS Other: All systems not noted in ROS Statement are negative. Past Medical History Past Medical History: GERD/Reflux, Prostate Disorder Additional Past Medical History / Comment(s): intermittent abd. pain with diarrhea History of Any Multi-Drug Resistant Organisms: None Reported Past Surgical History: Cardiac Ablation Additional Past Surgical History / Comment(s): aortic valve replacement 2008. colonoscopy Past Anesthesia/Blood Transfusion Reactions: No Reported Reaction Past Psychological History: No Psychological Hx Reported Smoking Status: Former smoker Past Alcohol Use History: Occasional Past Drug Use History: None Reported - Past Family History Mother Family Medical History: Cancer, Respiratory Disorder Additional Family Medical History / Comment(s): pased from lung cancer Father Family Medical History: Coronary Artery Disease (CAD), Respiratory Disorder Additional Family Medical History / Comment(s): passed from pulmonary fibrosis General Exam - General Exam Comments Initial Comments: General: Appears in no acute distress. HEAD: Normal with no signs of head trauma. EYES: PERRLA, EOMI, conjunctiva normal, no discharge. Pupils are 3 mm and equal bilaterally. ENT: Hearing grossly intact, normal oropharynx. Moist mucous members. RESPIRATORY: Clear breath sounds bilaterally. No wheezes, rales, or rhonchi. C/V: Regular rate and rhythm. S1 and S2 auscultated, no edema, peripheral pulses 2+ and intact throughout ABD: Abd is soft, nontender, nondistended EXT: Normal range of motion, no obvious deformity SKIN: No rashes or lesions observed on exposed skin. NEURO: Alert and oriented x 4. Cranial nerves II-XII intact. No focal sensory or strength deficits. NIH of 0. GCS of 15. Romberg within normal limits.No dysdiadochokinesia. Normal finger to nose and heel to groves testing.he ambulates without difficulty. Limitations: no limitations Course Vital Signs 01/11/22 01/11/22 01/11/22 14:05 15:01 15:17 Temperature 97.6 F Pulse Rate 63 Pulse Rate [ 60 Sitting Field Coordinator] Pulse Rate [ 64 Sitting] Pulse Rate [ 62 Standing] Pulse Rate [ 53 L Supine] Respiratory 16 Rate Blood Pressure 118/70 Blood Pressure 121/85 [Sitting] Blood Pressure 116/75 [Standing] Blood Pressure 114/74 [Supine] O2 Sat by Pulse 99 Oximetry 01/11/22 01/11/22 15:50 18:13 Temperature Pulse Rate 51 L 54 L Pulse Rate [ Sitting Field Coordinator] Pulse Rate [ Sitting] Pulse Rate [ Standing] Pulse Rate [ Supine] Respiratory 18 18 Rate Blood Pressure 106/69 123/77 Blood Pressure [Sitting] Blood Pressure [Standing] Blood Pressure [Supine] O2 Sat by Pulse 97 98 Oximetry Medical Decision Making - Medical Decision Making Based on the patient's presentation and physical exam, the patient is having symptoms over the last week that is currently not experiencing. Is uncertain what is causing it. Has not yet followed up with outpatient PCP. I did recommend we obtain a cardiac workup with his history in addition to basic labs and CT brain and chest. He was in agreement this plan. EKG showed no signs of acute ischemia. Patient has sinus bradycardia which he does have a history of. Laboratory studies are remarkable for an undetected troponin, a BNP within normal limits, and unremarkable urinalysis. The r emainder of the labs are unremarkable except for a normocytic dm which the patient has a history of of secondary to his CLL. Appears to be at his baseline, which appears to range from 120-140. CT brain showed no acute intracranial process. Chest x-ray revealed no acute cardiopulmonary process. I spoke with the patient and his extensively regarding his negative workup. He is asymptomatic at this time. Workup yielded no explanation for his symptoms. Vital signs remained within normal limits throughout his stay. I discussed at length that I do believe it is safer to be discharged home, with a negative workup and his symptoms lasting the course of the week. I recommended close follow-up with his PCP. They were in agreement this plan. Recommended strict return precautions. Orthostatic blood pressures were obtained prior to discharge were within normal limits. I instructed the patient to follow up with their PCP in the next 3 days. I explained that the patient should return to the emergency department if they experience any worsening symptoms. Strict return precautions were discussed with the patient. The patient expressed understanding of these instructions. I answered all questions that the patient had. The patient was discharged home in good condition with their prescriptions and follow up information. - Lab Data Result diagrams: 01/11/22 15:10 01/11/22 15:10 Lab Results 01/11/22 01/11/22 01/11/22 Range/Units 15:10 15:10 15:10 WBC 4.0 (3.8-10.6) k/uL RBC 4.45 (4.30-5.90) m/uL Hgb 14.0 (13.0-17.5) gm/dL Hct 42.9 (39.0-53.0) % MCV 96.6 (80.0-100.0) fL MCH 31.4 (25.0-35.0) pg MCHC 32.5 (31.0-37.0) g/dL RDW 12.0 (11.5-15.5) % Plt Count 120 L (150-450) k/uL MPV 8.3 Neutrophils % 62 % Lymphocytes % 26 % Monocytes % 6 % Eosinophils % 2 % Basophils % 1 % Neutrophils # 2.5 (1.3-7.7) k/uL Lymphocytes # 1.1 (1.0-4.8) k/uL Monocytes # 0.3 (0-1.0) k/uL Eosinophils # 0.1 (0-0.7) k/uL Basophils # 0.0 (0-0.2) k/uL Sodium 138 (137-145) mmol/L Potassium 4.0 (3.5-5.1) mmol/L Chloride 104 (98-107) mmol/L Carbon Dioxide 28 (22-30) mmol/L Anion Gap 6 mmol/L BUN 15 (9-20) mg/dL Creatinine 0.87 (0.66-1.25) mg/dL Est GFR (CKD-EPI)AfAm >90 (>60 ml/min/1.73 sqM) Est GFR (CKD-EPI)NonAf >90 (>60 ml/min/1.73 sqM) Glucose 127 H (74-99) mg/dL Calcium 8.9 (8.4-10.2) mg/dL Magnesium 2.0 (1.6-2.3) mg/dL Total Bilirubin 0.7 (0.2-1.3) mg/dL AST 26 (17-59) U/L ALT 19 (4-49) U/L Alkaline Phosphatase 54 (38-126) U/L Troponin I (0.000-0.034) ng/mL NT-Pro-B Natriuret Pep pg/mL Total Protein 6.5 (6.3-8.2) g/dL Albumin 4.2 (3.5-5.0) g/dL Urine Color Yellow Urine Appearance Clear (Clear) Urine pH 5.5 (5.0-8.0) Ur Specific Belden 1.025 (1.001-1.035) Urine Protein Negative (Negative) Urine Glucose (UA) Trace H (Negative) Urine Ketones Negative (Negative) Urine Blood Negative (Negative) Urine Nitrite Negative (Negative) Urine Bilirubin Negative (Negative) Urine Urobilinogen <2.0 (<2.0) mg/dL Ur Leukocyte Esterase Negative (Negative) 01/11/22 01/11/22 Range/Units 15:10 15:10 WBC (3.8-10.6) k/uL RBC (4.30-5.90) m/uL Hgb (13.0-17.5) gm/dL Hct (39.0-53.0) % MCV (80.0-100.0) fL MCH (25.0-35.0) pg MCHC (31.0-37.0) g/dL RDW (11.5-15.5) % Plt Count (150-450) k/uL MPV Neutrophils % % Lymphocytes % % Monocytes % % Eosinophils % % Basophils % % Neutrophils # (1.3-7.7) k/uL Lymphocytes # (1.0-4.8) k/uL Monocytes # (0-1.0) k/uL Eosinophils # (0-0.7) k/uL Basophils # (0-0.2) k/uL Sodium (137-145) mmol/L Potassium (3.5-5.1) mmol/L Chloride (98-107) mmol/L Carbon Dioxide (22-30) mmol/L Anion Gap mmol/L BUN (9-20) mg/dL Creatinine (0.66-1.25) mg/dL Est GFR (CKD-EPI)AfAm (>60 ml/min/1.73 sqM) Est GFR (CKD-EPI)NonAf (>60 ml/min/1.73 sqM) Glucose (74-99) mg/dL Calcium (8.4-10.2) mg/dL Magnesium (1.6-2.3) mg/dL Total Bilirubin (0.2-1.3) mg/dL AST (17-59) U/L ALT (4-49) U/L Alkaline Phosphatase (38-126) U/L Troponin I <0.012 (0.000-0.034) ng/mL NT-Pro-B Natriuret Pep 179 pg/mL Total Protein (6.3-8.2) g/dL Albumin (3.5-5.0) g/dL Urine Color Urine Appearance (Clear) Urine pH (5.0-8.0) Ur Specific [place] (1.001-1.035) Urine Protein (Negative) Urine Glucose (UA) (Negative) Urine Ketones (Negative) Urine Blood (Negative) Urine Nitrite (Negative) Urine Bilirubin (Negative) Urine Urobilinogen (<2.0) mg/dL Ur Leukocyte Esterase (Negative) - EKG Data -: EKG Interpreted by Me EKG Comments: 12-lead Electrocardiogram Interpretation Note EKG was reviewed and interpreted by myself. 12-lead ECG performed at 1419 is interpreted by me as revealing normal sinus rhythm at a rate of 59 beats per minute. Samson is normal. KS interval is 176 seconds, QRS duration is 108 ms, QTc is 422 ms. There were no ST or T wave abnormalities to suggest myocardial ischemia or injury. R wave progression across the precordium was satisfactory. By my interpretation this EKG is non-diagnostic for acute ischemia. Patient does have a history of bradycardia seen on prior EKGs. Disposition Clinical Impression: Lightheadedness Disposition: HOME SELF-CARE Condition: Good Is patient prescribed a controlled substance at d/c from ED?: No Referrals: Wicho Saba MD [Primary Care Provider] - 1-2 days Time of Disposition: 17:15
[2022-01-11 18:14] VITALS: BP 123/77; PULSE 54
== END 2022-01-11 18:15 | disposition home or self-care (01) ==
LOC: EC 14:02
DX: R42 Dizziness and giddiness (principal); R07.89 Other chest pain; K21.9 Gastro-esophageal reflux disease without esophagitis; Z87.891 Personal history of nicotine dependence; Z79.899 Other long term (current) drug therapy; Z91.041 Radiographic dye allergy status; Z88.8 Allergy status to other drugs, medicaments and biological substances; Z79.82 Long term (current) use of aspirin
CPT/HCPCS: 36415; 70450; 71046; 80053; 81003; 83735; 83880; 84484; 85025; 93005; 99285

== ENCOUNTER → 2023-09-18 | Outpatient (CLI) | payer BC ==
--- NOTE | 2023-09-20 08:22 | MR ---
EXAMINATION TYPE: MR Prostate wo/w con DATE OF EXAM: 09/18/2023 10:21 AM COMPARISON: None. CLINICAL INDICATION:Male, 63 years old with history of R97.20 Elevated PSA; Elevated PSA. TECHNIQUE: Multi-planar, multi-sequence imaging of the pelvis is performed prior to and following the uncomplicated administration of bolus intravenous gadolinium. CONTRAST: 7.5 Gadavist Interpretive Criteria: PI-RADS v2.1 SERUM PSA: 5.9 on 08/21/2023 4.4 on 04/22/2023. SURGICAL PATHOLOGY: No data available. FINDINGS: Prostatic dimensions: 4.9 x 5.0 x 3.8 cm. Ellipsoid Volume:48.75 (PSA density=0.12 ng/mL/mL) CENTRAL GLAND (Central and Transition Zones/CZ+TZ): Multiple bilateral, heterogenous appearing hypertrophic stromal nodules, without suspicious lesion. M edian lobe hypertrophy with protrusion into the base of the bladder. (PI-RADS 2) PERIPHERAL ZONE (PZ): Bilateral linear, indistinct wedgelike areas of low ADC, and low T2 signal, No evidence of masslike a bnormality, or localized perfusional hypervascularity, to further suggest a focus of clinically signi ficant prostate cancer. (PI-RADS 2) SEMINAL VESICLES (SV): Symmetric and unremarkable. PERIPROSTATIC TISSUES: Unremarkable. LYMPH NODES: No enlarged pelvic lymph node. REMAINING PELVIS: Bladder wall is within normal limits given distention. No abnormal free or organized intrapelvic fluid collection. No pathologic bowel dilation or mural thickening. No hernia visualized OSSEOUS STRUCTURES: No suspicious osseous abnormality. IMPRESSION: 1. No specific features for high-risk prostate cancer. Maximum PI-RADS score: 2. 2. Mild BPH, estimated gland volume 48.75 mL. 3. No suspicious osseous lesion. No lymphadenopathy. No evidence of prostate adenocarcinoma involving the periprostatic tissues.
== END | disposition home or self-care (01) ==
LOC: RADMRIMAIN 09:11
PROVIDERS: ATTEND Urology
DX: N40.0 Benign prostatic hyperplasia without lower urinary tract symptoms (principal)
CPT/HCPCS: 72197; A9585

== ENCOUNTER → 2024-12-08 | Outpatient (CLI) | payer MEDICAID ==
[2024-12-08 14:49] LABS: HCT 42.8 % (39.6-50.0); MCH 31.3 pg (27.0-32.0); MCHC 32.7 g/dL (32.0-37.0); MCV 95.7 FL (80.0-97.0); Mean Platelet Volume 11.3 FL (9.5-12.2); NRBC Per 100 WBC 0 X 10*3/uL (0.00-0.01); Platelet Count 122 X 10*3/uL (140-440); RBC 4.47 X 10*6/uL (4.40-5.60); WBC 3.98 X 10*3/uL (4.50-10.00)
[2024-12-08 15:18] LABS: ALT 27 U/L (10-49); AST 29 U/L (14-35); Albumin 4.5 g/dL (3.8-4.9); Albumin/Globulin Ratio 2.05 Ratio (1.60-3.17); Alkaline Phosphatase 66 U/L (41-126); BUN/Creat Ratio 15.11 Ratio (12.00-20.00); Blood Urea Nitrogen 13.6 mg/dL (9.0-27.0); Calcium 9.3 mg/dL (8.7-10.3); Carbon Dioxide 25.8 mmol/L (21.6-31.8); Chloride 104 mmol/L (96-109); Chol/HDL Ratio 2.88 Ratio; Globulin 2.2 g/dL (1.6-3.3); Glucose 84 mg/dL (70-110); LDL Cholesterol,Calculated 106.1 mg/dL (0.0-131.0); Potassium 3.9 mmol/L (3.5-5.5); Sodium 140 mmol/L (135-145); Total Bilirubin 1.1 mg/dL (0.3-1.2); Total Protein 6.7 g/dL (6.2-8.2); VLDL Calculation 8.68 mg/dL (5.00-40.00)
== END | disposition home or self-care (01) ==
LOC: LABWHC1 08:59
PROVIDERS: ATTEND Family Medicine
DX: Z00.00 Encounter for general adult medical examination without abnormal findings (principal)
CPT/HCPCS: 36415; 80053; 80061; 85027

== ENCOUNTER → 2025-02-17 | Day surgery (SDC) | payer MEDICAID ==
[2025-02-15 15:20] VITALS: BMI 23.6
[~2025-02-17] MED LIST changes: +GLYCOPYRROLATE 0.2 MG/ML 2 ML VIAL ONE; -LACTATED RINGERS 1,000 ML IV SCH; +PROPOFOL 10 MG/ML 20 ML VIAL IV ONE
[2025-02-17 12:23] VITALS: TEMP 97.5
[2025-02-17] MEDS: IV FLUID CONTINUATION 1,000 ML IV ONE ×2 (12:23→13:46)
[2025-02-17] MEDS: LACTATED RINGERS 1,000 ML IV SCH (12:23)
--- NOTE | 2025-02-17 14:07 | P.PCN ---
Date of Procedure: 02/17/25 Procedure(s) Performed: BRIEF HISTORY: Patient is a 64-year-old pleasant white male scheduled for an elective colonoscopy as a part of screening for by history of colon polyps. PROCEDURE PERFORMED: Colonoscopy. PREOPERATIVE DIAGNOSIS: Screening for prior history of colon polyps.. IV sedation per Anesthesia. PROCEDURE: After informed consent was obtained, the patient, was brought into the endoscopy unit. IV sedation was administered by Anesthesia under continuous monitoring. Digital rectal examination was normal. Initially the Olympus CF-160 flexible video colonoscope was then inserted in the rectum, gradually advanced into the cecum without any difficulty. Careful examination was performed as the scope was gradually being withdrawn. Ileocecal valve and the appendiceal orifice were visualized and appeared normal. Prep was excellent. Mucosa of the cecum, ascending colon, transverse colon, descending colon, sigmoid colon, and rectum appeared normal. Retroflexion was performed in the rectum and no lesions were seen. The patient tolerated the procedure well. IMPRESSION: Normal-appearing colon from rectum to cecum with no evidence of colorectal neoplasia. RECOMMENDATIONS: Findings of this examination were discussed with the patient as well as his family.. He was advised to have repeat screening colonoscopy in 10 years.
[2025-02-17 14:12] VITALS: RESP 16
[2025-02-17 14:45] VITALS: BP 132/78; PULSE 61
== END ==
LOC: ORWHC2ENDO 10:56
PROVIDERS: ATTEND Internal Medicine Gastroenterology
DX: Z12.11 Encounter for screening for malignant neoplasm of colon (principal); Z86.0100 Personal history of colon polyps, unspecified
CPT/HCPCS: 45378; J2704; J1596